=== PATIENT | female | born 1980 | race Caucasian/White ===

== ENCOUNTER 2022-11-02 17:53 | Emergency (ER) | payer BC, OTHER ==
[2022-11-02] MEDS ORDERED: Compazine 10 MG/2 ML IV ONE (18:39)
[2022-11-02] MEDS ORDERED: TORAdol 30 mg Injection IV ONE (18:40)
[2022-11-02] MEDS ORDERED: Sodium Chloride 0.9% 1000 ML 1,000 ML IV STA (18:40)
[2022-11-02] MEDS ORDERED: BENADRYL 50 MG/ML IV ONE (18:42)
[2022-11-02] MEDS ORDERED: TORAdol 30 mg Injection ONE (18:45)
[2022-11-02] MEDS ORDERED: Compazine 10 MG/2 ML ONE (18:46)
[2022-11-02] MEDS ORDERED: BENADRYL 50 MG/ML ONE (18:46)
[2022-11-02] MEDS ORDERED: Sodium Chloride 0.9% 1000 ML 1,000 ML ONE (18:46)
[2022-11-02 19:03] LABS: Absolute Neutrophil Ct (ANC) 6.54 x10^3/uL (1.4-6.9); BASOPHIL % 0.3 % (0.0-0.4); Basophil (Absolute #) 0.03 x10^3/uL (0-0.4); Eosinophil % 2.2 % (0.00-5.0); Eosinophil (Absolute #) 0.21 x10^3/uL (0-0.5); Hemoglobin 12.8 g/dL (12.0-16.0); IMMATURE GRAN # 0.02 x10^3u/L (0.00-0.03); IMMATURE GRAN % 0.2 % (0.00-0.4); Lymphocyte (Absolute #) 1.88 x10^3/uL (1.0-4.6); Lymphocytes % 20.1 % (24.0-44.0); Mean Cell Volume 97.9 fL (78-100); Mean Corpuscular Hemoglobin 30.5 pg (26-32); Mean Corpuscular Hgb Concent. 31.2 g/dL (32-36); Monocyte (Absolute #) 0.66 x10^3/uL (0.0-1.3); Monocytes % 7.1 % (0.0-12.0); Neutrophil % 70.1 % (36.0-66.0); Platelet Count 204 x10^3/uL (150-450); Red Blood Count 4.19 x10^6/uL (4.1-5.4); Red Cell Distribution Width 12.9 % (11.5-14.0); White Blood Count 9.3 x10^3/uL (4.0-10.5)
[2022-11-02 19:10] LABS: Appearance Clear (Clear); Bacteria Rare /HPF (None Seen); Bilirubin Negative (Negative); Epithelial Cells Moderate /HPF (None Seen); Glucose, Urine Negative (Negative); Hyaline Casts NONE SEEN /LPF (0-2); Ketones Trace (Negative); Leukocyte Esterase Trace (Negative); Nitrite Negative (Negative); Ph 5.5 (4.6-8.0); Protein,Urine Dip Negative (Negative); RBC 0-2 /HPF (0-5)
[2022-11-02 19:23] LABS: Blood NHT (Negative)
[2022-11-02 19:24] LABS: ADD URINE CULTURE? NO (NO)
[2022-11-02 19:29] LABS: ALBUMIN 4.1 g/dL (3.5-5.0); ALKALINE PHOSPHATASE 55 U/L (38-126); ANION GAP 11.1 MEQ/L (5-15); BLOOD UREA NITROGEN 16 mg/dL (7-17); CHLORIDE 100 mmol/L (98-107); Calcium 8.5 mg/dL (8.4-10.2); Carbon Dioxide 31 mmol/L (22-30); Creatinine 1 0.58 mg/dL (0.52-1.04); EST GLOMERULAR FILTRATION RATE > 60.0 ML/MIN; Glucose 106 mg/dL (74-106); NT PRO BNP 41.2 pg/mL (0-450); Potassium 3.4 mmol/L (3.5-5.1); SGOT/AST 23 U/L (14-36); SGPT/ALT 22 U/L (0-35); SODIUM 139 mmol/L (137-145); Total Protein 7.1 g/dL (6.3-8.2)
[2022-11-02 20:18] VITALS: O2SAT 100
[2022-11-02] MEDS ORDERED: ROCEPHIN 2 Gm-D5w 50ML BAG** 2 G/50 ML IVPB IV STA (20:58)
--- NOTE | 2022-11-02 20:58 | ERPHSYRPT ---
- History of Present Illness Time Seen by Provider: 11/02/22 23:17 Source: patient Exam Limitations: no limitations Patient Subjective Stated Complaint: pt here for headaches,dizziness since having covid a month ago Triage Nursing Assessment: pt alert, walked in steady gait , resp easy, skin w/d/p. able to undress, no edema noted Physician History: Patient is a 42-year-old female presents the emergency department for evaluation of headache dizziness and shortness of breath. Patient states symptoms started approximately 1 month ago after being diagnosed with COVID. Symptoms are progressive. No trauma. No fever. No nausea vomiting or diaphoresis. Patient denies a history of the same. Patient voices no other complaints or concerns at this time. Portions of this note were created with voice recognition technology. There may be grammatical, spelling, punctuation or sound alike errors Timing/Duration: other (1 month) Severity: moderate Modifying Factors: Improves With: nothing Associated Symptoms: No nausea, No vomiting, No headaches, No loss of appetite Allergies/Adverse Reactions: No Known Drug Allergies Allergy (Verified 11/02/22 18:19) Home Medications: Loratadine 10 mg [Claritin 10 mg] 1 ea DAILY 06/19/12 [History] Medroxyprogesterone Acetate [Depo-Provera] 1 ea UD 06/19/12 [History] Meloxicam [Mobic] 15 mg PO DAILY 11/02/22 [History] Hx Tetanus, Diphtheria Vaccination/Date Given: Yes Hx Influenza Vaccination/Date Given: No Hx Pneumococcal Vaccination/Date Given: No Immunizations Up to Date: Yes Travel Risk - International Travel Have you traveled outside of the country in past 3 weeks: No - Coronavirus Screening Are you exhibiting any of the following symptoms?: No Close contact with a COVID-19 positive Pt in past 14-21 Days: No - Vaccine Status Have you recieved a Covid-19 vaccination: Yes Lathe Operator: Moderna - Vaccination Dates Date of 2cond Vaccination (if applicable): 2020 - Review of Systems Constitutional: No Symptoms, No Fever, No Chills Eyes: No Symptoms Ears, Nose, & Throat: No Symptoms Respiratory: No Symptoms, No Cough, No Dyspnea Cardiac: No Symptoms, No Chest Pain, No Edema, No Syncope Abdominal/Gastrointestinal: No Symptoms, No Abdominal Pain, No Nausea, No Vomiting, No Diarrhea Genitourinary Symptoms: No Symptoms, No Dysuria Musculoskeletal: No Symptoms, No Back Pain, No Neck Pain Skin: No Symptoms, No Rash Neurological: No Symptoms, No Dizziness, No Focal Weakness, No Sensory Changes Psychological: No Symptoms Endocrine: No Symptoms Hematologic/Lymphatic: No Symptoms Immunological/Allergic: No Symptoms All Other Systems: Reviewed and Negative - Past Medical History Pertinent Past Medical History: No Neurological History: No Pertinent History ENT History: No Pertinent History Cardiac History: No Pertinent History Respiratory History: No Pertinent History Endocrine Medical History: Hypoglycemia Musculoskeletal History: No Pertinent History GI Medical History: No Pertinent History History: No Pertinent History Psycho-Social History: Anxiety Female Reproductive Disorders: No Pertinent History - Past Surgical History Past Surgical History: No Neuro Surgical History: No Pertinent History Cardiac: No Pertinent History Respiratory: No Pertinent History Gastrointestinal: No Pertinent History Genitourinary: No Pertinent History Musculoskeletal: No Pertinent History Female Surgical History: Section, Other Other Surgical History: Lasix - gaudencio eyes, surgery to remove plantars warts on feed, skin tag removed. breast lift - Social History Smoking Status: Former smoker How long have you smoked: 15 Exposure to second hand smoke: No Drug Use: none Patient Lives Alone: No - Female History Hx Last Menstrual Period: week ago Hx Now: No - Nursing Vital Signs Nursing Vital Signs: Initial Vital Signs Pulse Rate 68 11/02/22 17:58 Respiratory Rate 18 11/02/22 17:58 Blood Pressure 114/75 11/02/22 17:58 O2 Sat by Pulse Oximetry 98 11/02/22 17:58 Pain Scale Pain Intensity 0 - Physical Exam General Appearance: no apparent distress, alert Eye Exam: PERRL/EOMI, eyes nml inspection Ears, Nose, Throat Exam: normal ENT inspection, TMs normal, pharynx normal, moist mucous membranes Neck Exam: normal inspection, non-tender, supple, full range of motion Respiratory Exam: normal breath sounds, lungs clear, No respiratory distress Cardiovascular Exam: regular rate/rhythm, normal heart sounds, normal peripheral pulses Gastrointestinal/Abdomen Exam: soft, normal bowel sounds, No tenderness, No mass Back Exam: normal inspection, normal range of motion, No CVA tenderness, No vertebral tenderness Extremity Exam: normal inspection, normal range of motion, pelvis stable Neurologic Exam: alert, oriented x 3, cooperative, normal mood/affect, nml cerebellar function, nml station & gait, sensation nml, No motor deficits Skin Exam: normal color, warm, dry, No rash Lymphatic Exam: No adenopathy SpO2 Interpretation: normal SpO2: 100 O2 Delivery: Room Air - Course Nursing assessment & vital signs reviewed: Yes - CT Exams Chest CT Interpretation: Tele-radiologist Report (No pulmonary embolus) Head CT Interpretation: Tele-radiologist Report (No acute large vessel infarction intracranial bleed or mass. Examination limited secondary to suboptimal arterial contrast with findings suggestive of no anterior or posterior cerebral circulation stenosis occlusion or aneurysmal deformity) Ordered Tests: Active Orders 24 hr Category Date Time Status Government Auditor STAT Care 11/02/22 18:41 Active EKG-ER Only STAT Care 11/02/22 18:40 Active IV Insertion STAT Care 11/02/22 18:40 Active Pulse Oximetry (ED) STAT Care 11/02/22 18:40 Active CHEST WITH CONTRAST [CT] Stat Exams 11/02/22 20:56 Taken CTA HEAD W AND/OR WO CONTRAST [CT] Stat Exams 11/02/22 20:55 Taken CBC W DIFF Stat Lab 11/02/22 18:59 Completed CMP Stat Lab 11/02/22 18:59 Completed D-DIMER QUANTITATIVE Stat Lab 11/02/22 18:59 Completed NT PRO BNP Stat Lab 11/02/22 18:59 Completed TSH [TSH, 3RD Generation] Stat Lab 11/02/22 18:59 Completed UA W/RFX UR CULTURE Stat Lab 11/02/22 18:44 Completed Medication Summary Discontinued Medications Generic Name Dose Route Start Last Admin Trade Name Allenq PRN Reason Stop Dose Admin Diphenhydramine HCl 25 mg 11/02/22 18:42 11/02/22 18:50 Diphenhydramine Hcl 50 Mg/Ml Vial IV 11/02/22 18:43 25 mg STAT ONE Administration Diphenhydramine HCl Confirm 11/02/22 18:46 Diphenhydramine Hcl 50 Mg/Ml Vial Administered 11/02/22 18:47 Dose 50 mg .ROUTE .STK-MED ONE Sodium Chloride 1,000 mls @ 999 mls/hr 11/02/22 18:40 11/02/22 19:50 Sodium Chloride 0.9% 1000 Ml IV 11/02/22 19:40 Infused .Q1H1M STA Infusion Sodium Chloride Confirm 11/02/22 18:46 Sodium Chloride 0.9% 1000 Ml Administered 11/02/22 18:47 Dose 1,000 mls @ ud .ROUTE .STK-MED ONE Ceftriaxone Sodium/Dextrose 2 g in 50 mls @ 100 mls/hr 11/02/22 20:58 11/02/22 22:33 Rocephin 2 Gm-D5w 50ml Bag IV 11/02/22 21:27 100 mls/hr STAT STA 100 mls/hr Administration Ceftriaxone Sodium/Dextrose Confirm 11/02/22 22:28 Rocephin 2 Gm-D5w 50ml Bag Administered 11/02/22 22:29 Dose 2 g in 50 mls @ ud IV .STK-MED ONE Ketorolac Tromethamine 30 mg 11/02/22 18:40 11/02/22 18:50 Ketorolac Tromethamine 30 Mg/Ml Inj IV 11/02/22 18:41 30 mg STAT ONE Administration Ketorolac Tromethamine Confirm 11/02/22 18:45 Ketorolac Tromethamine 30 Mg/Ml Inj Administered 11/02/22 18:46 Dose 30 mg .ROUTE .STK-MED ONE Prochlorperazine Edisylate 10 mg 11/02/22 18:39 11/02/22 18:50 Prochlorperazine Edisylate 10 Mg/2 Ml Vial IV 11/02/22 18:40 10 mg STAT ONE Administration Prochlorperazine Edisylate Confirm 11/02/22 18:46 Prochlorperazine Edisylate 10 Mg/2 Ml Vial Administered 11/02/22 18:47 Dose 10 mg .ROUTE .STK-MED ONE Lab/Rad Data: Laboratory Result Diagrams 11/02/22 18:59 11/02/22 18:59 Laboratory Results 11/02/22 11/02/22 11/02/22 Range/Units 18:59 18:59 18:59 WBC 9.3 (4.0-10.5) x10^3/uL RBC 4.19 (4.1-5.4) x10^6/uL Hgb 12.8 (12.0-16.0) g/dL Hct 41.0 (35-47) % MCV 97.9 (78-100) fL MCH 30.5 (26-32) pg MCHC 31.2 L (32-36) g/dL RDW 12.9 (11.5-14.0) % Plt Count 204 (150-450) x10^3/uL MPV 11.0 (7.5-11.0) fL Gran % 70.1 H (36.0-66.0) % Immature Gran % (Auto) 0.2 (0.00-0.4) % Nucleat RBC Rel Count 0.0 (0.00-0.1) % Eos # (Auto) 0.21 (0-0.5) x10^3/uL Immature Gran # (Auto) 0.02 (0.00-0.03) x10^3u/L Absolute Lymphs (auto) 1.88 (1.0-4.6) x10^3/uL Absolute Monos (auto) 0.66 (0.0-1.3) x10^3/uL Absolute Nucleated RBC 0.00 (0.00-0.01) x10^3u/L Lymphocytes % 20.1 L (24.0-44.0) % Monocytes % 7.1 (0.0-12.0) % Eosinophils % 2.2 (0.00-5.0) % Basophils % 0.3 (0.0-0.4) % Absolute Granulocytes 6.54 (1.4-6.9) x10^3/uL Basophils # 0.03 (0-0.4) x10^3/uL D-Dimer 0.52 H (0.0-0.50) mg/L Sodium 139 (137-145) mmol/L Potassium 3.4 L (3.5-5.1) mmol/L Chloride 100 (98-107) mmol/L Carbon Dioxide 31 H (22-30) mmol/L Anion Gap 11.1 (5-15) MEQ/L BUN 16 (7-17) mg/dL Creatinine 0.58 (0.52-1.04) mg/dL Estimated GFR > 60.0 ML/MIN Glucose 106 (74-106) mg/dL Calcium 8.5 (8.4-10.2) mg/dL Total Bilirubin 0.40 (0.2-1.3) mg/dL AST 23 (14-36) U/L ALT 22 (0-35) U/L Alkaline Phosphatase 55 (38-126) U/L NT-Pro-B Natriuret Pep 41.2 (0-450) pg/mL Serum Total Protein 7.1 (6.3-8.2) g/dL Albumin 4.1 (3.5-5.0) g/dL TSH 3rd Generation (0.47-4.68) mIU/L Urine Color (Yellow) Urine Appearance (Clear) Urine pH (4.6-8.0) Ur Specific Haynes (1.005-1.030) Urine Protein (Negative) Urine Glucose (UA) (Negative) mg/dL Urine Ketones (Negative) Urine Blood (Negative) Urine Nitrite (Negative) Urine Bilirubin (Negative) Urine Urobilinogen (0.2) mg/dL Ur Leukocyte Esterase (Negative) U Hyaline Cast (Auto) (0-2) /LPF Urine Microscopic RBC (0-5) /HPF Urine Microscopic WBC (0-5) /HPF Ur Epithelial Cells (None Seen) /HPF Urine Bacteria (None Seen) /HPF Urine Culture Reflexed (NO) 11/02/22 11/02/22 Range/Units 18:59 18:44 WBC (4.0-10.5) x10^3/uL RBC (4.1-5.4) x10^6/uL Hgb (12.0-16.0) g/dL Hct (35-47) % MCV (78-100) fL MCH (26-32) pg MCHC (32-36) g/dL RDW (11.5-14.0) % Plt Count (150-450) x10^3/uL MPV (7.5-11.0) fL Gran % (36.0-66.0) % Immature Gran % (Auto) (0.00-0.4) % Nucleat RBC Rel Count (0.00-0.1) % Eos # (Auto) (0-0.5) x10^3/uL Immature Gran # (Auto) (0.00-0.03) x10^3u/L Absolute Lymphs (auto) (1.0-4.6) x10^3/uL Absolute Monos (auto) (0.0-1.3) x10^3/uL Absolute Nucleated RBC (0.00-0.01) x10^3u/L Lymphocytes % (24.0-44.0) % Monocytes % (0.0-12.0) % Eosinophils % (0.00-5.0) % Basophils % (0.0-0.4) % Absolute Granulocytes (1.4-6.9) x10^3/uL Basophils # (0-0.4) x10^3/uL D-Dimer (0.0-0.50) mg/L Sodium (137-145) mmol/L Potassium (3.5-5.1) mmol/L Chloride (98-107) mmol/L Carbon Dioxide (22-30) mmol/L Anion Gap (5-15) MEQ/L BUN (7-17) mg/dL Creatinine (0.52-1.04) mg/dL Estimated GFR ML/MIN Glucose (74-106) mg/dL Calcium (8.4-10.2) mg/dL Total Bilirubin (0.2-1.3) mg/dL AST (14-36) U/L ALT (0-35) U/L Alkaline Phosphatase (38-126) U/L NT-Pro-B Natriuret Pep (0-450) pg/mL Serum Total Protein (6.3-8.2) g/dL Albumin (3.5-5.0) g/dL TSH 3rd Generation 2.180 (0.47-4.68) mIU/L Urine Color Yellow (Yellow) Urine Appearance Clear (Clear) Urine pH 5.5 (4.6-8.0) Ur Specific Haynes 1.020 (1.005-1.030) Urine Protein Negative (Negative) Urine Glucose (UA) Negative (Negative) mg/dL Urine Ketones Trace A (Negative) Urine Blood NHT (Negative) Urine Nitrite Negative (Negative) Urine Bilirubin Negative (Negative) Urine Urobilinogen 1.0 A (0.2) mg/dL Ur Leukocyte Esterase Trace A (Negative) U Hyaline Cast (Auto) NONE SEEN (0-2) /LPF Urine Microscopic RBC 0-2 (0-5) /HPF Urine Microscopic WBC 6-10 A (0-5) /HPF Ur Epithelial Cells Moderate A (None Seen) /HPF Urine Bacteria Rare A (None Seen) /HPF Urine Culture Reflexed NO (NO) - Progress Progress: improved Progress Note: Patient is a 42-year-old female presents to emergency department for evaluation of headache dizziness and shortness of breath. Symptoms ongoing for approximately 1 month. Physical exam presenting unremarkable. Patient's complaint is chronic. C omplexity of patient's complaint is moderate. No significant comorbidities to contribute the patient symptomology other than patient had COVID approximately 1 month ago. Tests ordered include EKG which was reviewed by Dr. Fierro. Test include CT chest, CTA head, CBC, CMP which revealed a potassium of 3.4. D-dimer which is elevated at 0.52. BNP TSH and UA. Urinalysis reveals a urinary tract inf ection. Patient received Benadryl Compazine Toradol and IV fluids for her headache. Rocephin IV was administered for urinary tract infection. Patient reassessed. She feels much better. Vital stable. Patient agrees to follow-up with her primary care doctor within 48 hours for reevaluation. Level of EM service provided was moderate. Complexity of problem addressed was moderate. Complexity of data reviewed and analyzed was moderate. Patient served as independent historian. Time spent during discharge approximately 10 minutes. Discharge diagnoses of dizziness, headache and urinary tract infection. Portions of this note were created with voice recognition technology. There may be grammatical, spelling, punctuation or sound alike errors 11/03/22 00:17 Counseled pt/family regarding: lab results, diagnosis, need for follow-up, rad results - Departure Departure Disposition: Home Clinical Impression: UTI (urinary tract infection), Dizziness, Headache Condition: Stable Critical Care Time: No Referrals: BEAU NUNN NP [Primary Care Provider] - Follow up/PCP as directed
[2022-11-02 21:12] VITALS: BP 114/65
[2022-11-02] MEDS ORDERED: ROCEPHIN 2 Gm-D5w 50ML BAG** 2 G/50 ML IVPB IV ONE (22:28)
[2022-11-03] MEDS ORDERED: Klor Con PO ONE ×2 (00:15→00:18)
[2022-11-03 00:21] VITALS: PULSE 84
--- NOTE | 2022-11-03 08:54 | XRAY ---
Indication: Dizziness and frontal headache. Cavernous sinus thrombosis. Conventional contrast enhanced CTV head performed with and without contrast using 80 cc Isovue 370 contrast. 2-D sagittal and coronal reformatted images obtained. Additional 3-D reformatted images obtained using a separate workstation. Comparison: None Noncontrast images demonstrate normal brain parenchyma, ventricles, and bony calvarium. Visualized paranasal sinuses and mastoid air cells are clear. Postcontrast images are negative for abnormal enhancing intra or extra-axial mass. Visualized venous sinuses/drainage and jugular veins are negative for thrombosis. Impression: Normal CTV head with and without contrast exam. Comment: Preliminary interpretation made by [facility]. No critical discrepancy.
--- NOTE | 2022-11-03 08:58 | XRAY ---
Indication: Dizziness and frontal headache. Elevated d-dimer. History Covid 19. Status post bilateral breast implants 6 days ago. Multiple contiguous axial images obtained through the chest using 70 cc Isovue 370 contrast and PE protocol. Comparison: None Good opacification of the pulmonary arteries to include the lobar and segmental branches. No pulmonary embolus. Heart is not enlarged. Aorta is normal in course and caliber. 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 No pathologic mediastinal/hilar lymphadenopathy. Lungs are inflated and clear. Bony thorax intact. Intact bilateral subglandular breast implants with moderate free air consistent with recent surgery. Limited upper abdomen unremarkable. Impression: 1. Normal CT PE exam. 2. Status post bilateral breast implants. Comment: Preliminary interpretation made by C. No critical discrepancy.
== END 2022-11-03 00:40 | disposition home or self-care (01) ==
LOC: ED 17:53
DX: N39.0 Urinary tract infection, site not specified (principal); R42 Dizziness and giddiness; R51.9 Headache, unspecified; R06.02 Shortness of breath; Z79.899 Other long term (current) drug therapy
CPT/HCPCS: 36000; 36415; 70496; 71260; 80053; 81001; 83880; 84443; 85025; 85379; 93005; 93041; 94760; 96374; 96375; 99284; J0696; J1200; J1885; A9270-GY

== ENCOUNTER 2024-08-12 02:37 | Emergency (ER) | payer BC ==
[2024-08-12 02:43] VITALS: RESP 16; TEMP 97.2
[2024-08-12 03:06] VITALS: BP 105/75; PULSE 86; O2SAT 100
--- NOTE | 2024-08-12 03:18 | ERPHSYRPT ---
- History of Present Illness Time Seen by Provider: 08/12/24 03:11 Source: patient Exam Limitations: no limitations Patient Subjective Stated Complaint: dizziness Triage Nursing Assessment: Pt ambulated into ER, spouse at bedside. Pt alert and oriented x4. Pt c/o vertigo which woke her up from sleep tonight. Pt states, "I feel like the room is just spinning". Pt was admitted 3 weeks ago at [facility] for dizziness. Pt c/o pressure in her ears. Physician History: Patient's had chronic vertigo since she had long COVID. Has been going on for months to years. She had an acute exacerbation tonight. It is positional. She has whirling feeling whenever she moves in certain positions. She is nauseated. She has been evaluated for this by neurology. She has been admitted for this. She has had multiple workups. They think it is possibly related to the COVID. Movement makes his symptoms worse nothing makes it better. She has no ataxia. Allergies/Adverse Reactions: No Known Drug Allergies Allergy (Verified 08/12/24 02:50) Home Medications: Loratadine 10 mg [Claritin 10 mg] 1 ea PO DAILY 06/19/12 [History] Meloxicam [Mobic] 15 mg PO DAILY 11/02/22 [History] Erenumab-Aooe [Aimovig Autoinjector] 140 mg SQ UD 08/12/24 [History] Hydroxyzine HCl 25 mg [Atarax 25 mg] 1 tab PO QID PRN PRN 08/12/24 [History] Meclizine HCl 25 mg [Antivert 25 mg] 1 tab PO QID PRN PRN 08/12/24 [History] Hx Tetanus, Diphtheria Vaccination/Date Given: Yes Hx Influenza Vaccination/Date Given: No Hx Pneumococcal Vaccination/Date Given: No Travel Risk - International Travel Have you traveled outside of the country in past 3 weeks: No - Emerging Infectious Disease Are you exhibiting symptoms associated with any current EIDs: No - Review of Systems Constitutional: No Symptoms Eyes: No Symptoms Ears, Nose, & Throat: No Symptoms All Other Systems: Reviewed and Negative - Past Medical History Pertinent Past Medical History: Yes Neurological History: Migraines ENT History: No Pertinent History Cardiac History: No Pertinent History Respiratory History: No Pertinent History Endocrine Medical History: Hypoglycemia Musculoskeletal History: No Pertinent History GI Medical History: No Pertinent History History: No Pertinent History Psycho-Social History: Anxiety Female Reproductive Disorders: No Pertinent History Other Medical History: vertigo, vestibular migraines, Long Covid - Past Surgical History Past Surgical History: Yes Neuro Surgical History: No Pertinent History Cardiac: No Pertinent History Respiratory: No Pertinent History Gastrointestinal: No Pertinent History Genitourinary: No Pertinent History Musculoskeletal: No Pertinent History Female Surgical History: Section, Other Other Surgical History: Lasix - gaudencio eyes, surgery to remove plantars warts on feet, skin tag removed. breast lift - Female History Hx Last Menstrual Period: 2 weeks ago Hx Now: No - Social History Smoking Status: Former smoker How long have you smoked: 15 Exposure to second hand smoke: No Drug Use: none Patient Lives Alone: No - Social Determinants of Health Will the patient participate in the screening: Yes Do you worry about a steady place to live?: No Do you have any problems with any of the following?: No known problems In the past 12 months,have you had to go without utilities?: No Transportation Issues: No Has anyone in your support network made you feel unsafe?: No Have you or anyone in your house had to go without enough: No - Nursing Vital Signs Nursing Vital Signs: Initial Vital Signs Temperature 97.2 F 08/12/24 02:41 Pulse Rate 83 08/12/24 02:41 Respiratory Rate 16 08/12/24 02:41 Blood Pressure 112/84 08/12/24 02:41 O2 Sat by Pulse Oximetry 94 L 08/12/24 02:41 Pain Scale Pain Intensity 0 - Physical Exam General Appearance: no apparent distress Eye Exam: PERRL/EOMI, eyes nml inspection Ears, Nose, Throat Exam: normal ENT inspection, TMs normal, pharynx normal Neurologic Exam: alert, oriented x 3, cooperative, room designer II-XII nml as tested, normal mood/affect, nml cerebellar function, other (Patient does not have any ataxia. The hints test is not required because it is positional) Skin Exam: normal color SpO2: 100 - Course Nursing assessment & vital signs reviewed: Yes - Progress Progress: improved Progress Note: Patient was stable throughout stay. She is already on Antivert 3 times a day. She says AtiRates has worked for her in the past. She is wanting some acute relief now. I think would give her some Ativan. It is positional. It does not appear to be any kind of central vertigo. She is already been worked up for this thoroughly. I do not think any more further workup is needed at this time. I will send her home with a prescription for some Ativan as well. 08/12/24 03:17 Medical Desision Making - Independent Historian Additional History obtained from: Spouse - Diagnostic Testing Diagnostic test were ordered, analyzed, and reviewed by me: No - Risk of complications Minimal Risk: Minimal risk of morbidity - Departure Departure Disposition: Home Clinical Impression: Chronic vertigo Condition: Stable Critical Care Time: No Referrals: BAEU NUNN NP [Primary Care Provider] - Follow up/PCP as directed Instructions: Vertigo (a Type of Dizziness) (DC) Prescriptions: Lorazepam [Ativan] 1 mg PO BID PRN #20 tablet
[2024-08-12] MEDS ORDERED: Ativan 1 MG ONE (03:23)
[2024-08-12] MEDS: Ativan 1 MG PO ONE (03:24)
== END 2024-08-12 03:44 | disposition home or self-care (01) ==
LOC: ED 02:37
DX: R42 Dizziness and giddiness (principal); Z86.16 Personal history of COVID-19
CPT/HCPCS: 99282; A9270-GY

== ENCOUNTER 2024-08-26 13:20 | Observation (INO) | payer BC ==
[2024-08-26 13:54] LABS: Absolute Neutrophil Ct (ANC) 6.99 x10^3/uL (1.56-6.13); BASOPHIL % 0.3 % (0.1-1.2); Basophil (Absolute #) 0.03 x10^3/uL (0.01-0.08); Eosinophil % 1.7 % (0.7-5.8); Eosinophil (Absolute #) 0.16 x10^3/uL (0.04-0.36); Hematocrit 42.3 % (34.1-44.9); IMMATURE GRAN # 0.03 x10^3u/L (0.001-0.031); IMMATURE GRAN % 0.3 % (0.001-0.429); Lymphocyte (Absolute #) 1.83 x10^3/uL (1.18-3.74); Lymphocytes % 19.5 % (19.3-51.7); Mean Cell Volume 96.1 fL (79.4-94.8); Mean Corpuscular Hemoglobin 31.8 pg (25.6-32.2); Mean Corpuscular Hgb Concent. 33.1 g/dL (32.2-35.5); Mean Platelet Volume 11.2 fL (9.4-12.3); Monocyte (Absolute #) 0.33 x10^3/uL (0.24-0.86); Monocytes % 3.5 % (4.7-12.5); Neutrophil % 74.7 % (34.0-71.1); Platelet Count 191 x10^3/uL (182-369); Red Cell Distribution Width 11.8 % (11.7-14.4); White Blood Count 9.4 x10^3/uL (3.98-10.04)
[2024-08-26 14:05] LABS: HCG SERUM TEST NEGATIVE (NEGATIVE)
[2024-08-26 14:09] LABS: ALBUMIN 4.2 g/dL (3.5-5.0); ALKALINE PHOSPHATASE 47 U/L (38-126); BLOOD UREA NITROGEN 11 mg/dL (7-17); CHLORIDE 107 mmol/L (98-107); Carbon Dioxide 26 mmol/L (22-30); Creatinine 1 0.59 mg/dL (0.52-1.04); EST GLOMERULAR FILTRATION RATE 113.9 ML/MIN; ETHYL ALCOHOL < 10 mg/dL (0-10); Glucose 126 mg/dL (74-106); MAGNESIUM 2.2 mg/dL (1.6-2.3); Potassium 3.8 mmol/L (3.5-5.1); SGOT/AST 25 U/L (14-36); SGPT/ALT 19 U/L (0-35); SODIUM 140 mmol/L (135-145); Total Protein 7.2 g/dL (6.3-8.2)
--- NOTE | 2024-08-26 14:56 | XRAY ---
CLINICAL HISTORY: dizziness, light headed COMPARISON: None. TECHNIQUE: Axial non-contrast CT scan of the brain was performed from the skull base to the high parietal region. One of the following dose reduction techniques were utilized for this exam: Automated exposure control, adjustment of the mA and/or kV according to patient size, use of iterative reconstruction. FINDINGS: Brain Parenchyma: Normal attenuation of the cerebral hemispheres, cerebellum, and brainstem. No evidence of acute infarct, hemorrhage, or mass effect. Hypoattenuating focus within the inferior portion of the right lentiform nucleus is most consistent with a prominent perivascular space, less likely to be a lacunar infarct. Ventricular System: Ventricles are normal in size and configuration. No evidence of hydrocephalus or ventricular enlargement. Subarachnoid Spaces: Normal sulci and cisterns. No evidence of subarachnoid hemorrhage or extra-axial fluid collections. Cerebellum and Brainstem: Normal size and signal. No masses, lesions, or areas of abnormal signal. Orbits: Normal appearance of the globes, optic nerves, and extraocular muscles. No evidence of orbital masses or abnormal signals. Sinuses: Clear paranasal sinuses. No evidence of sinusitis or mucosal thickening. A small mucous retention cyst is seen in the left maxillary sinus. Mastoid Air Cells: Clear mastoid air cells. No evidence of mastoiditis. Skull and Meninges: Normal skull morphology. IMPRESSION: 1. Normal CT of the head without contrast. 2. No acute intracranial abnormality is seen. Electronically Signed by: Osmar Dobson MD. (08/26/2024 14:52:48 EST)
[2024-08-26] MEDS ORDERED: Sodium Chloride 0.9% 1000 ML 1,000 ML ONE ×2 (16:12→17:04)
[2024-08-26] MEDS: Sodium Chloride 0.9% 1000 ML 1,000 ML IV STA ×2 (16:13→17:05)
--- NOTE | 2024-08-26 16:50 | ERPHSYRPT ---
- History of Present Illness Time Seen by Provider: 08/26/24 14:30 Source: patient Exam Limitations: no limitations Patient Subjective Stated Complaint: C/O hypotension. Patient states she has been having intermittent hypotension for the past month but she feels "more off" this am. Triage Nursing Assessment: Patient ambulated back to ER. She is alert and oriented. No SOB. Patient is calm. FREDERICK WNL. Timing/Duration: today Severity: mild Modifying Factors: Improves With: movement Associated Symptoms: loss of appetite, weakness (near syncope) Allergies/Adverse Reactions: No Known Drug Allergies Allergy (Verified 08/26/24 13:29) Home Medications: Loratadine 10 mg [Claritin 10 mg] 1 ea PO DAILY PRN 06/19/12 [History] Meloxicam [Mobic] 15 mg PO DAILY 11/02/22 [History] Erenumab-Aooe [Aimovig Autoinjector] 140 mg SQ UD 08/12/24 [History] Hydroxyzine HCl 25 mg [Atarax 25 mg] 1 tab PO QID PRN PRN 08/12/24 [History] Meclizine HCl 25 mg [Antivert 25 mg] 1 tab PO QID PRN PRN 08/12/24 [History] Promethazine HCl 25 mg [Phenergan 25 mg] 25 mg PO QID PRN 08/26/24 [Hist ory] Hx Tetanus, Diphtheria Vaccination/Date Given: Yes Hx Influenza Vaccination/Date Given: No Hx Pneumococcal Vaccination/Date Given: No Immunizations Up to Date: Yes Travel Risk - International Travel Have you traveled outside of the country in past 3 weeks: No - Emerging Infectious Disease Are you exhibiting symptoms associated with any current EIDs: No - Review of Systems Constitutional: Fatigue, Malaise, Weakness Eyes: No Symptoms Ears, Nose, & Throat: No Symptoms Respiratory: No Symptoms Cardiac: No Symptoms Abdominal/Gastrointestinal: No Symptoms Genitourinary Symptoms: No Symptoms Musculoskeletal: No Symptoms Skin: No Symptoms Neurological: No Symptoms Psychological: No Symptoms Endocrine: No Symptoms Hematologic/Lymphatic: No Symptoms Immunological/Allergic: No Symptoms All Other Systems: Reviewed and Negative - Past Medical History Pertinent Past Medical History: Yes Neurological History: Migraines ENT History: No Pertinent History Cardiac History: No Pertinent History Respiratory History: No Pertinent History Endocrine Medical History: Hypoglycemia Musculoskeletal History: No Pertinent History GI Medical History: No Pertinent History History: No Pertinent History Psycho-Social History: Anxiety Female Reproductive Disorders: No Pertinent History Other Medical History: vertigo, vestibular migraines, Long Covid - Past Surgical History Past Surgical History: Yes Neuro Surgical History: No Pertinent History Cardiac: No Pertinent History Respiratory: No Pertinent History Gastrointestinal: No Pertinent History Genitourinary: No Pertinent History Musculoskeletal: No Pertinent History Female Surgical History: Section, Other Other Surgical History: Lasik - gaudencio eyes, surgery to remove plantars warts on feet, skin tag removed. breast lift - Female History Hx Last Menstrual Period: 3 weeks ago Hx Now: No - Social History Smoking Status: Former smoker How long have you smoked: 15 Exposure to second hand smoke: No Drug Use: none Patient Lives Alone: No - Social Determinants of Health Will the patient participate in the screening: Declined to provide - Nursing Vital Signs Nursing Vital Signs: Initial Vital Signs Blood Pressure 115/78 08/26/24 13:30 O2 Sat by Pulse Oximetry 100 08/26/24 13:30 Pain Scale Pain Intensity 0 - Physical Exam General Appearance: no apparent distress Eye Exam: PERRL/EOMI Ears, Nose, Throat Exam: other (oral mucosa are dry ) Respiratory Exam: normal breath sounds Cardiovascular Exam: regular rate/rhythm Gastrointestinal/Abdomen Exam: soft, normal bowel sounds Back Exam: normal inspection Neurologic Exam: alert, oriented x 3 SpO2: 100 Ordered Tests: Active Orders 24 hr Category Date Time Status Benefits Coordinator STAT Care 08/26/24 13:44 Active EKG-ER Only STAT Care 08/26/24 13:43 Active IV Insertion STAT Care 08/26/24 13:43 Active Orthostatic Vital Signs STAT Care 08/26/24 13:43 Active HEAD WITHOUT CONTRAST [CT] Stat Exams 08/26/24 13:43 Completed CBC W DIFF Stat Lab 08/26/24 13:45 Completed CMP Stat Lab 08/26/24 13:45 Completed ETHYL ALCOHOL Stat Lab 08/26/24 13:45 Completed HCG QUALITATIVE, SERUM Stat Lab 08/26/24 13:45 Completed Lactic Acid Stat Lab 08/26/24 13:46 Completed MAGNESIUM Stat Lab 08/26/24 13:45 Completed TROPONIN Q4H Lab 08/26/24 13:45 Completed TROPONIN Q4H Lab 08/26/24 17:45 Ordered TROPONIN Q4H Lab 08/26/24 21:45 Ordered UA W/RFX UR CULTURE Stat Lab 08/26/24 13:43 Ordered Urine Triage Profile Stat Lab 08/26/24 13:43 Ordered Transfer Order Routine Transfer 08/26/24 Ordered Medication Summary Generic Name Dose Route Start Last Admin Trade Name [place] PRN Reason Stop Dose Admin Sodium Chloride 1,000 mls @ 999 mls/hr 08/26/24 16:08 08/26/24 16:13 Sodium Chloride 0.9% 1000 Ml IV 08/26/24 17:08 999 mls/hr .Q1H1M STA Administration Discontinued Medications Generic Name Dose Route Start Last Admin Trade Name Freq PRN Reason Stop Dose Admin Sodium Chloride Confirm 08/26/24 16:12 Sodium Chloride 0.9% 1000 Ml Administered 08/26/24 16:13 Dose 1,000 mls @ ud .ROUTE .STK-MED ONE Lab/Rad Data: Laboratory Result Diagrams 08/26/24 13:45 08/26/24 13:45 Laboratory Results 08/26/24 08/26/24 08/26/24 Range/Units 13:46 13:45 13:45 WBC (3.98-10.04) x10^3/uL RBC (3.93-5.22) x10^6/uL Hgb (11.2-15.7) g/dL Hct (34.1-44.9) % MCV (79.4-94.8) fL MCH (25.6-32.2) pg MCHC (32.2-35.5) g/dL RDW (11.7-14.4) % Plt Count (182-369) x10^3/uL MPV (9.4-12.3) fL Gran % (34.0-71.1) % Immature Gran % (Auto) (0.001-0.429) % Nucleat RBC Rel Count (0.00-0.2) % Eos # (Auto) (0.04-0.36) x10^3/uL Immature Gran # (Auto) (0.001-0.031) x10^3u/L Absolute Lymphs (auto) (1.18-3.74) x10^3/uL Absolute Monos (auto) (0.24-0.86) x10^3/uL Absolute Nucleated RBC (0.00-0.012) x10^3u/L Lymphocytes % (19.3-51.7) % Monocytes % (4.7-12.5) % Eosinophils % (0.7-5.8) % Basophils % (0.1-1.2) % Absolute Granulocytes (1.56-6.13) x10^3/uL Basophils # (0.01-0.08) x10^3/uL Sodium (135-145) mmol/L Potassium (3.5-5.1) mmol/L Chloride (98-107) mmol/L Carbon Dioxide (22-30) mmol/L Anion Gap (5-15) MEQ/L BUN (7-17) mg/dL Creatinine (0.52-1.04) mg/dL Estimated GFR ML/MIN Glucose (74-106) mg/dL Lactic Acid 1.2 (0.4-2.0) Calcium (8.4-10.2) mg/dL Magnesium (1.6-2.3) mg/dL Total Bilirubin (0.2-1.3) mg/dL AST (14-36) U/L ALT (0-35) U/L Alkaline Phosphatase (38-126) U/L Troponin I < 0.012 (0.000-0.033) ng/mL Serum Total Protein (6.3-8.2) g/dL Albumin (3.5-5.0) g/dL Serum HCG, Qual NEGATIVE (NEGATIVE) Ethyl Alcohol (0-10) mg/dL 08/26/24 08/26/24 Range/Units 13:45 13:45 WBC 9.4 (3.98-10.04) x10^3/uL RBC 4.40 (3.93-5.22) x10^6/uL Hgb 14.0 (11.2-15.7) g/dL Hct 42.3 (34.1-44.9) % MCV 96.1 H (79.4-94.8) fL MCH 31.8 (25.6-32.2) pg MCHC 33.1 (32.2-35.5) g/dL RDW 11.8 (11.7-14.4) % Plt Count 191 (182-369) x10^3/uL MPV 11.2 (9.4-12.3) fL Gran % 74.7 H (34.0-71.1) % Immature Gran % (Auto) 0.3 (0.001-0.429) % Nucleat RBC Rel Count 0.0 (0.00-0.2) % Eos # (Auto) 0.16 (0.04-0.36) x10^3/uL Immature Gran # (Auto) 0.03 (0.001-0.031) x10^3u/L Absolute Lymphs (auto) 1.83 (1.18-3.74) x10^3/uL Absolute Monos (auto) 0.33 (0.24-0.86) x10^3/uL Absolute Nucleated RBC 0.00 (0.00-0.012) x10^3u/L Lymphocytes % 19.5 (19.3-51.7) % Monocytes % 3.5 L (4.7-12.5) % Eosinophils % 1.7 (0.7-5.8) % Basophils % 0.3 (0.1-1.2) % Absolute Granulocytes 6.99 H (1.56-6.13) x10^3/uL Basophils # 0.03 (0.01-0.08) x10^3/uL Sodium 140 (135-145) mmol/L Potassium 3.8 (3.5-5.1) mmol/L Chloride 107 (98-107) mmol/L Carbon Dioxide 26 (22-30) mmol/L Anion Gap 11.0 (5-15) MEQ/L BUN 11 (7-17) mg/dL Creatinine 0.59 (0.52-1.04) mg/dL Estimated GFR 113.9 ML/MIN Glucose 126 H (74-106) mg/dL Lactic Acid (0.4-2.0) Calcium 9.0 (8.4-10.2) mg/dL Magnesium 2.2 (1.6-2.3) mg/dL Total Bilirubin 0.50 (0.2-1.3) mg/dL AST 25 (14-36) U/L ALT 19 (0-35) U/L Alkaline Phosphatase 47 (38-126) U/L Troponin I (0.000-0.033) ng/mL Serum Total Protein 7.2 (6.3-8.2) g/dL Albumin 4.2 (3.5-5.0) g/dL Serum HCG, Qual (NEGATIVE) Ethyl Alcohol < 10 (0-10) mg/dL - Progress Progress Note: Patient's labs were reviewed and she was given IV fluids she was informed of the need for rehydration and admission she is agreeable. I spoke to the hospitalist he was updated with the patient's vital signs and lab results he will admit the patient 08/26/24 16:49 Medical Desision Making - Discussion of managment Care discussed with:: hospitalist Reviewed:: Need for additional workup Agreed on:: decision to admit, place in obs Will see patient: in hospital - Departure Departure Disposition: Observation Clinical Impression: Hypotension, Weakness Condition: Stable Critical Care Time: No Referrals: BEAU NUNN NP [Primary Care Provider] - Follow up/PCP as directed
--- NOTE | 2024-08-26 17:40 | PCM.HP ---
History of Present Illness - Chief Complaint Chief Complaint: orthostatic hypotension Date: 08/26/24 History of Present Illness: is a 44 year old female with PMHX of long-COVID, migraines, hypoglycemia, and anxiety. She came to the ER today C/O hypotension. She tried drinking water, water with electrolytes, and water with salt added and was unable to get her BP up. Patient states she has been having intermittent hypotension for the past month but she feels "more off" this am. She reports she has an appointment at the [facility] November 25, 2024 for possible autonomic disorder evaluation. She reports sleeping in the floor at home and taking anivert at night to sleep as this helps. She reports being seen by pain management and was tole she has conversion d/o. 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 CT head in ER did not show any concerning findings. She denies CP, SOB, abd. pain, N/V/D. - Review of Systems Constitutional: No Fever, No Chills Eyes: No Symptoms Ears, Nose, & Throat: No Symptoms Respiratory: No Cough, No Short Of Breath Cardiac: No Chest Pain, No Edema, No Syncope Abdominal/Gastrointestinal: No Abdominal Pain, No Nausea, No Vomiting, No Diarrhea Genitourinary Symptoms: No Dysuria Musculoskeletal: No Back Pain, No Neck Pain Skin: No Rash Neurological: No Dizziness, No Focal Weakness, No Sensory Changes Psychological: No Symptoms Endocrine: No Symptoms Hematologic/Lymphatic: No Symptoms Immunological/Allergic: No Symptoms Medications & Allergies Home Medications: Home Medication List Loratadine 10 mg [Claritin 10 mg] 1 ea PO DAILY PRN 06/19/12 [History Confirmed 08/26/24] Meloxicam [Mobic] 15 mg PO DAILY 11/02/22 [History Confirmed 08/26/24] Hydroxyzine HCl 25 mg [Atarax 25 mg] 1 tab PO QID PRN PRN 08/12/24 [History Confirmed 08/26/24] Lorazepam [Ativan] 1 mg PO BID PRN #20 tablet 08/12/24 [Rx Confirmed 08/26/24] Meclizine HCl 25 mg [Antivert 25 mg] 1 tab PO QID PRN PRN 08/12/24 [History Confirmed 08/26/24] Ergocalciferol (Vitamin D2) [Vitamin D2] 1,250 mcg PO 2XW 08/26/24 [History Confirmed 08/26/24] Promethazine HCl 25 mg [Phenergan 25 mg] 25 mg PO QID PRN 08/26/24 [History Confirmed 08/26/24] Allergies/Adverse Reactions: Allergies Allergy/AdvReac Type Severity Reaction Status Date / Time No Known Drug Allergies Allergy Verified 08/26/24 17:30 - Past Medical History Past Medical History: Yes Neurological History: Migraines ENT History: No Pertinent History Cardiac History: No Pertinent History Respiratory History: No Pertinent History Endocrine Medical History: Hypoglycemia Musculoskelatal History: No Pertinent History GI Medical History: No Pertinent History History: No Pertinent History Pyscho-Social History: Anxiety Reproductive Disorders: No Pertinent History Comment: vertigo, vestibular migraines, Long Covid - Female History Hx Last Menstrual Period: 3 weeks ago Are you now?: No - Past Surgical History Past Surgical History: Yes Neuro Surgical History: No Pertinent History Cardiac History: No Pertinent History Respiratory Surgery: No Pertinent History GI Surgical History: No Pertinent History Genitourinary Surgical Hx: No Pertinent History Musculskeletal Surgical Hx: No Pertinent History Female Surgical History: Section, Other Other Surgical History: Lasik - gaudencio eyes, surgery to remove plantars warts on feet, skin tag removed. breast lift Significant Family History: no pertinent family hx - Social History Smoking Status: Former smoker How long have you smoked: 15 Exposure to second hand smoke: No Alcohol: None Drug Use: none - Social Determinants of Health Will the patient participate in the screening: Declined to provide Do you worry about a steady place to live?: No In the past 12 months,have you had to go without utilities?: No Have you or anyone in your house had to go without enough: No Transportation Issues: No Has anyone in your support network made you feel unsafe?: No - Physical Exam Vital Signs: Vital Signs - 24 hr Temp Pulse Resp BP BP Pulse Ox 08/26/24 17:29 97.7 F 73 16 97/59 100 08/26/24 17:00 103/68 08/26/24 16:51 100 08/26/24 16:30 83 14 119/73 100 08/26/24 16:00 108 H 20 99/67 08/26/24 15:30 88 16 94/56 98 08/26/24 15:21 85 27 H 99/67 100 08/26/24 15:20 88 18 100 08/26/24 15:10 85 22 100 08/26/24 15:00 93 H 15 100 08/26/24 14:50 94 H 14 100 08/26/24 14:40 91 H 18 100 08/26/24 14:30 95 H 22 100 08/26/24 14:20 96 H 08/26/24 14:10 101 H 19 99 08/26/24 14:03 97 H 17 100 08/26/24 13:34 90 18 103/81 99 08/26/24 13:33 105/83 99 08/26/24 13:32 98.5 F 104 H 18 120/71 115/78 99 08/26/24 13:30 115/78 100 General Appearance: no apparent distress, alert Neurologic Exam: alert, oriented x 3, cooperative, normal mood/affect, nml cerebellar function, nml station & gait, sensation nml, No motor deficits Eye Exam: PERRL/EOMI, eyes nml inspection Ears, Nose, Throat Exam: normal ENT inspection, TMs normal, pharynx normal, moist mucous membranes Neck Exam: normal inspection, non-tender, supple, full range of motion Respiratory Exam: normal breath sounds, lungs clear, No respiratory distress Cardiovascular Exam: regular rate/rhythm, normal heart sounds, normal peripheral pulses Gastrointestinal/Abdomen Exam: soft, normal bowel sounds, No tenderness, No mass Back Exam: normal inspection, normal range of motion, No CVA tenderness, No vertebral tenderness Extremity Exam: normal inspection, normal range of motion, pelvis stable Skin Exam: normal color, warm, dry, No rash Lymphatic Exam: No adenopathy Results - Labs Lab/Micro Results: Lab Results-Last 24 Hours 08/26/24 08/26/24 08/26/24 Range/Units 13:45 13:45 13:45 WBC 9.4 (3.98-10.04) x10^3/uL RBC 4.40 (3.93-5.22) x10^6/uL Hgb 14.0 (11.2-15.7) g/dL Hct 42.3 (34.1-44.9) % MCV 96.1 H (79.4-94.8) fL MCH 31.8 (25.6-32.2) pg MCHC 33.1 (32.2-35.5) g/dL RDW 11.8 (11.7-14.4) % Plt Count 191 (182-369) x10^3/uL MPV 11.2 (9.4-12.3) fL Gran % 74.7 H (34.0-71.1) % Immature Gran % (Auto) 0.3 (0.001-0.429) % Nucleat RBC Rel Count 0.0 (0.00-0.2) % Eos # (Auto) 0.16 (0.04-0.36) x10^3/uL Immature Gran # (Auto) 0.03 (0.001-0.031) x10^3u/L Absolute Lymphs (auto) 1.83 (1.18-3.74) x10^3/uL Absolute Monos (auto) 0.33 (0.24-0.86) x10^3/uL Absolute Nucleated RBC 0.00 (0.00-0.012) x10^3u/L Lymphocytes % 19.5 (19.3-51.7) % Monocytes % 3.5 L (4.7-12.5) % Eosinophils % 1.7 (0.7-5.8) % Basophils % 0.3 (0.1-1.2) % Absolute Granulocytes 6.99 H (1.56-6.13) x10^3/uL Basophils # 0.03 (0.01-0.08) x10^3/uL Sodium 140 (135-145) mmol/L Potassium 3.8 (3.5-5.1) mmol/L Chloride 107 (98-107) mmol/L Carbon Dioxide 26 (22-30) mmol/L Anion Gap 11.0 (5-15) MEQ/L BUN 11 (7-17) mg/dL Creatinine 0.59 (0.52-1.04) mg/dL Estimated GFR 113.9 ML/MIN Glucose 126 H (74-106) mg/dL Lactic Acid (0.4-2.0) Calcium 9.0 (8.4-10.2) mg/dL Magnesium 2.2 (1.6-2.3) mg/dL Total Bilirubin 0.50 (0.2-1.3) mg/dL AST 25 (14-36) U/L ALT 19 (0-35) U/L Alkaline Phosphatase 47 (38-126) U/L Troponin I < 0.012 (0.000-0.033) ng/mL Serum Total Protein 7.2 (6.3-8.2) g/dL Albumin 4.2 (3.5-5.0) g/dL Serum HCG, Qual (NEGATIVE) Ethyl Alcohol < 10 (0-10) mg/dL 08/26/24 08/26/24 Range/Units 13:45 13:46 WBC (3.98-10.04) x10^3/uL RBC (3.93-5.22) x10^6/uL Hgb (11.2-15.7) g/dL Hct (34.1-44.9) % MCV (79.4-94.8) fL MCH (25.6-32.2) pg MCHC (32.2-35.5) g/dL RDW (11.7-14.4) % Plt Count (182-369) x10^3/uL MPV (9.4-12.3) fL Gran % (34.0-71.1) % Immature Gran % (Auto) (0.001-0.429) % Nucleat RBC Rel Count (0.00-0.2) % Eos # (Auto) (0.04-0.36) x10^3/uL Immature Gran # (Auto) (0.001-0.031) x10^3u/L Absolute Lymphs (auto) (1.18-3.74) x10^3/uL Absolute Monos (auto) (0.24-0.86) x10^3/uL Absolute Nucleated RBC (0.00-0.012) x10^3u/L Lymphocytes % (19.3-51.7) % Monocytes % (4.7-12.5) % Eosinophils % (0.7-5.8) % Basophils % (0.1-1.2) % Absolute Granulocytes (1.56-6.13) x10^3/uL Basophils # (0.01-0.08) x10^3/uL Sodium (135-145) mmol/L Potassium (3.5-5.1) mmol/L Chloride (98-107) mmol/L Carbon Dioxide (22-30) mmol/L Anion Gap (5-15) MEQ/L BUN (7-17) mg/dL Creatinine (0.52-1.04) mg/dL Estimated GFR ML/MIN Glucose (74-106) mg/dL Lactic Acid 1.2 (0.4-2.0) Calcium (8.4-10.2) mg/dL Magnesium (1.6-2.3) mg/dL Total Bilirubin (0.2-1.3) mg/dL AST (14-36) U/L ALT (0-35) U/L Alkaline Phosphatase (38-126) U/L Troponin I (0.000-0.033) ng/mL Serum Total Protein (6.3-8.2) g/dL Albumin (3.5-5.0) g/dL Serum HCG, Qual NEGATIVE (NEGATIVE) Ethyl Alcohol (0-10) mg/dL - Radiology Impressions Radiology Exams & Impressions: Radiology Procedures Category Date Time Status HEAD WITHOUT CONTRAST [CT] Stat Exams 08/26/24 13:43 Completed Assessment/Plan (1) Orthostatic hypotension Current Visit: Yes Status: Acute Assessment & Plan: - 1L NS fluid bolus gave in ER. - IVF - recheck orthostats in AM - PT eval - Tele - Consider POTS dx Code(s): I95.1 - ORTHOSTATIC HYPOTENSION (2) Weakness Current Visit: Yes Status: Acute Assessment & Plan: - UA pending - CBC, CMP reviewed Code(s): R53.1 - WEAKNESS (3) Chronic vertigo Current Visit: No Status: Acute Assessment & Plan: - Continue meclizine VTE: SCD's Next of KIN: Spouse D/C plan: tomorrow Code status: Full Code(s): R42 - DIZZINESS AND GIDDINESS Telemedicine Encounter - Telemedicine Encounter Telemedicine Encounter: "The entirety of this encounter was performed via Telemedicine" This visit was performed using real-time audio and video connection between my location and thepatients locationwith the assistance of a surrogateat the patients location. Written or verbal consent was obtained from the patient/guardian to perform this visit usingsynchronoustelemedicine technology. Any patient questions regarding the telemedicine interaction were answered.
[2024-08-26] MEDS ORDERED: ATARAX 25 MG PO PRN (18:00)
[2024-08-26] MEDS ORDERED: PHENERGAN 25 MG PO PRN (18:00)
[2024-08-26] MEDS ORDERED: CLARITIN 10 MG PO PRN (18:00)
[2024-08-26] MEDS ORDERED: MELOXICAM PO ONE (19:20)
[2024-08-26] MEDS: NON-FORMULARY ITEM (Meloxicam [Mobic] 15 MG Tablet) PO SCH (19:21)
[2024-08-26] MEDS: Ativan 1 MG PO SCH (20:56)
[2024-08-26 21:15] LABS: Appearance Clear (Clear); Bacteria Moderate /HPF (None Seen); Bilirubin Negative (Negative); Blood Negative (Negative); Epithelial Cells Rare /HPF (None Seen); Glucose, Urine Negative (Negative); Hyaline Casts NONE SEEN /LPF (0-2); Ketones Negative (Negative); Leukocyte Esterase Negative (Negative); Nitrite Negative (Negative); Protein,Urine Dip Negative (Negative); Urobilinogen 0.2 mg/dL (0.2)
[2024-08-26 21:26] LABS: Amphetamine,Urine NEGATIVE (NEGATIVE); Barbiturate,Urine NEGATIVE (NEGATIVE); Benzodiazepine,Urine NEGATIVE (NEGATIVE); Cocaine,Urine NEGATIVE (NEGATIVE); Methadone,Urine NEGATIVE (NEGATIVE); Opiate,Urine NEGATIVE (NEGATIVE); PCP,Urine NEGATIVE (NEGATIVE); THC,Urine NEGATIVE (NEGATIVE)
[2024-08-27 04:33] LABS: Hematocrit 37.6 % (34.1-44.9); Hemoglobin 12.3 g/dL (11.2-15.7); Mean Cell Volume 96.7 fL (79.4-94.8); Mean Corpuscular Hemoglobin 31.6 pg (25.6-32.2); Mean Corpuscular Hgb Concent. 32.7 g/dL (32.2-35.5); Platelet Count 160 x10^3/uL (182-369); Red Blood Count 3.89 x10^6/uL (3.93-5.22)
[2024-08-27 04:43] LABS: ANION GAP 7.3 MEQ/L (5-15); Calcium 8.5 mg/dL (8.4-10.2); Creatinine 1 0.52 mg/dL (0.52-1.04); EST GLOMERULAR FILTRATION RATE 117.4 ML/MIN; Potassium 3.7 mmol/L (3.5-5.1)
[2024-08-27] MEDS: Sodium Chloride 0.9% 1000 ML 1,000 ML IV SCH (05:07)
[2024-08-27] MEDS ORDERED: Ativan 1 MG PO PRN (06:53)
--- NOTE | 2024-08-27 09:10 | PCM.DS ---
Discharge Summary Date of Admission: 08/26/24 17:18 Date of Discharge: 08/27/24 Admitting Physician: JUDITH AVELAR MD Primary Care Provider: BEAU NUNN Allergies Allergies No Known Drug Allergies Allergy (Verified 08/26/24 17:30) Hospital Summary - Hospital Course Hospital Course: 08/26/24 is a 44 year old female with PMHX of long-COVID, migraines, hypoglycemia, and anxiety. She came to the ER today C/O hypotension. She tried drinking water, water with electrolytes, and water with salt added and was unable to get her BP up. Patient states she has been having intermittent hypotension for the past month but she feels "more off" this am. She reports she has an appointment at the [facility] November 25, 2024 for possible autonomic disorder evaluation. She reports sleeping in the floor at home and taking anivert at night to sleep as this helps. 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 She reports she is a nurse and was not very happy about what the provider had to say. CT head in ER did not show any concerning findings. She denies CP, SOB, abd. pain, N/V/D. 08/27/24 Pt resting in bed. She continues to not feel well and feels like she has the flu. Fu/COVID/RSV pending. BP with orthostats non-concerning. HR did increase with standing 30 points. She does meet criteria for POTS. Discussed to increase sodium intake and f/u OP with PCP and cardiology. Will have pt work with PT today and evaluate for OP needs. BP stable and IVF stopped. She denies CP, SOB, abd. pain, N/V/D. - Vitals & Intake/Output Vital Signs: Vital Signs Temperature 98.2 F 08/27/24 07:38 Pulse Rate 82 08/27/24 07:38 Respiratory Rate 16 08/27/24 07:38 Blood Pressure 107/57 08/27/24 07:38 O2 Sat by Pulse Oximetry 96 08/27/24 07:38 Intake & Output: Intake & Output 08/24/24 08/25/24 08/26/24 08/27/24 11:59 11:59 11:59 11:59 Intake Total 1420 Output Total 300 Balance 1120 Weight 73.936 kg - Lab Result Diagrams: 08/27/24 04:10 08/27/24 04:10 Lab Results-Last 24 Hrs: Lab Results-Last 24 Hours 08/26/24 08/26/24 08/26/24 Range/Units 13:45 13:45 13:45 WBC 9.4 (3.98-10.04) x10^3/uL RBC 4.40 (3.93-5.22) x10^6/uL Hgb 14.0 (11.2-15.7) g/dL Hct 42.3 (34.1-44.9) % MCV 96.1 H (79.4-94.8) fL MCH 31.8 (25.6-32.2) pg MCHC 33.1 (32.2-35.5) g/dL RDW 11.8 (11.7-14.4) % Plt Count 191 (182-369) x10^3/uL MPV 11.2 (9.4-12.3) fL Gran % 74.7 H (34.0-71.1) % Immature Gran % (Auto) 0.3 (0.001-0.429) % Nucleat RBC Rel Count 0.0 (0.00-0.2) % Eos # (Auto) 0.16 (0.04-0.36) x10^3/uL Immature Gran # (Auto) 0.03 (0.001-0.031) x10^3u/L Absolute Lymphs (auto) 1.83 (1.18-3.74) x10^3/uL Absolute Monos (auto) 0.33 (0.24-0.86) x10^3/uL Absolute Nucleated RBC 0.00 (0.00-0.012) x10^3u/L Lymphocytes % 19.5 (19.3-51.7) % Monocytes % 3.5 L (4.7-12.5) % Eosinophils % 1.7 (0.7-5.8) % Basophils % 0.3 (0.1-1.2) % Absolute Granulocytes 6.99 H (1.56-6.13) x10^3/uL Basophils # 0.03 (0.01-0.08) x10^3/uL Sodium 140 (135-145) mmol/L Potassium 3.8 (3.5-5.1) mmol/L Chloride 107 (98-107) mmol/L Carbon Dioxide 26 (22-30) mmol/L Anion Gap 11.0 (5-15) MEQ/L BUN 11 (7-17) mg/dL Creatinine 0.59 (0.52-1.04) mg/dL Estimated GFR 113.9 ML/MIN Glucose 126 H (74-106) mg/dL Lactic Acid (0.4-2.0) Calcium 9.0 (8.4-10.2) mg/dL Magnesium 2.2 (1.6-2.3) mg/dL Total Bilirubin 0.50 (0.2-1.3) mg/dL AST 25 (14-36) U/L ALT 19 (0-35) U/L Alkaline Phosphatase 47 (38-126) U/L Troponin I < 0.012 (0.000-0.033) ng/mL Serum Total Protein 7.2 (6.3-8.2) g/dL Albumin 4.2 (3.5-5.0) g/dL Serum HCG, Qual (NEGATIVE) Urine Color (Yellow) Urine Appearance (Clear) Urine pH (4.6-8.0) Ur Specific [place] (1.005-1.030) Urine Protein (Negative) Urine Glucose (UA) (Negative) mg/dL Urine Ketones (Negative) Urine Blood (Negative) Urine Nitrite (Negative) Urine Bilirubin (Negative) Urine Urobilinogen (0.2) mg/dL Ur Leukocyte Esterase (Negative) U Hyaline Cast (Auto) (0-2) /LPF Urine Microscopic RBC (0-5) /HPF Urine Microscopic WBC (0-5) /HPF Ur Epithelial Cells (None Seen) /HPF Urine Bacteria (None Seen) /HPF Urine Culture Reflexed (NO) Urine Opiates Level (NEGATIVE) Ur Methadone (NEGATIVE) Urine Barbiturates (NEGATIVE) Ur Phencyclidine (PCP) (NEGATIVE) Urine Amphetamine (NEGATIVE) U Benzodiazepine Level (NEGATIVE) Urine Cocaine (NEGATIVE) Urine Marijuana (THC) (NEGATIVE) Ethyl Alcohol < 10 (0-10) mg/dL 08/26/24 08/26/24 08/26/24 Range/Units 13:45 13:46 19:25 WBC (3.98-10.04) x10^3/uL RBC (3.93-5.22) x10^6/uL Hgb (11.2-15.7) g/dL Hct (34.1-44.9) % MCV (79.4-94.8) fL MCH (25.6-32.2) pg MCHC (32.2-35.5) g/dL RDW (11.7-14.4) % Plt Count (182-369) x10^3/uL MPV (9.4-12.3) fL Gran % (34.0-71.1) % Immature Gran % (Auto) (0.001-0.429) % Nucleat RBC Rel Count (0.00-0.2) % Eos # (Auto) (0.04-0.36) x10^3/uL Immature Gran # (Auto) (0.001-0.031) x10^3u/L Absolute Lymphs (auto) (1.18-3.74) x10^3/uL Absolute Monos (auto) (0.24-0.86) x10^3/uL Absolute Nucleated RBC (0.00-0.012) x10^3u/L Lymphocytes % (19.3-51.7) % Monocytes % (4.7-12.5) % Eosinophils % (0.7-5.8) % Basophils % (0.1-1.2) % Absolute Granulocytes (1.56-6.13) x10^3/uL Basophils # (0.01-0.08) x10^3/uL Sodium (135-145) mmol/L Potassium (3.5-5.1) mmol/L Chloride (98-107) mmol/L Carbon Dioxide (22-30) mmol/L Anion Gap (5-15) MEQ/L BUN (7-17) mg/dL Creatinine (0.52-1.04) mg/dL Estimated GFR ML/MIN Glucose (74-106) mg/dL Lactic Acid 1.2 (0.4-2.0) Calcium (8.4-10.2) mg/dL Magnesium (1.6-2.3) mg/dL Total Bilirubin (0.2-1.3) mg/dL AST (14-36) U/L ALT (0-35) U/L Alkaline Phosphatase (38-126) U/L Troponin I < 0.012 (0.000-0.033) ng/mL Serum Total Protein (6.3-8.2) g/dL Albumin (3.5-5.0) g/dL Serum HCG, Qual NEGATIVE (NEGATIVE) Urine Color (Yellow) Urine Appearance (Clear) Urine pH (4.6-8.0) Ur Specific [place] (1.005-1.030) Urine Protein (Negative) Urine Glucose (UA) (Negative) mg/dL Urine Ketones (Negative) Urine Blood (Negative) Urine Nitrite (Negative) Urine Bilirubin (Negative) Urine Urobilinogen (0.2) mg/dL Ur Leukocyte Esterase (Negative) U Hyaline Cast (Auto) (0-2) /LPF Urine Microscopic RBC (0-5) /HPF Urine Microscopic WBC (0-5) /HPF Ur Epithelial Cells (None Seen) /HPF Urine Bacteria (None Seen) /HPF Urine Culture Reflexed (NO) Urine Opiates Level (NEGATIVE) Ur Methadone (NEGATIVE) Urine Barbiturates (NEGATIVE) Ur Phencyclidine (PCP) (NEGATIVE) Urine Amphetamine (NEGATIVE) U Benzodiazepine Level (NEGATIVE) Urine Cocaine (NEGATIVE) Urine Marijuana (THC) (NEGATIVE) Ethyl Alcohol (0-10) mg/dL 08/26/24 08/26/24 08/27/24 Range/Units 21:07 21:07 04:10 WBC 6.0 (3.98-10.04) x10^3/uL RBC 3.89 L (3.93-5.22) x10^6/uL Hgb 12.3 (11.2-15.7) g/dL Hct 37.6 (34.1-44.9) % MCV 96.7 H (79.4-94.8) fL MCH 31.6 (25.6-32.2) pg MCHC 32.7 (32.2-35.5) g/dL RDW 12.0 (11.7-14.4) % Plt Count 160 L (182-369) x10^3/uL MPV 11.0 (9.4-12.3) fL Gran % (34.0-71.1) % Immature Gran % (Auto) (0.001-0.429) % Nucleat RBC Rel Count (0.00-0.2) % Eos # (Auto) (0.04-0.36) x10^3/uL Immature Gran # (Auto) (0.001-0.031) x10^3u/L Absolute Lymphs (auto) (1.18-3.74) x10^3/uL Absolute Monos (auto) (0.24-0.86) x10^3/uL Absolute Nucleated RBC (0.00-0.012) x10^3u/L Lymphocytes % (19.3-51.7) % Monocytes % (4.7-12.5) % Eosinophils % (0.7-5.8) % Basophils % (0.1-1.2) % Absolute Granulocytes (1.56-6.13) x10^3/uL Basophils # (0.01-0.08) x10^3/uL Sodium (135-145) mmol/L Potassium (3.5-5.1) mmol/L Chloride (98-107) mmol/L Carbon Dioxide (22-30) mmol/L Anion Gap (5-15) MEQ/L BUN (7-17) mg/dL Creatinine (0.52-1.04) mg/dL Estimated GFR ML/MIN Glucose (74-106) mg/dL Lactic Acid (0.4-2.0) Calcium (8.4-10.2) mg/dL Magnesium (1.6-2.3) mg/dL Total Bilirubin (0.2-1.3) mg/dL AST (14-36) U/L ALT (0-35) U/L Alkaline Phosphatase (38-126) U/L Troponin I (0.000-0.033) ng/mL Serum Total Protein (6.3-8.2) g/dL Albumin (3.5-5.0) g/dL Serum HCG, Qual (NEGATIVE) Urine Color Yellow (Yellow) Urine Appearance Clear (Clear) Urine pH 6.0 (4.6-8.0) Ur Specific [place] 1.020 (1.005-1.030) Urine Protein Negative (Negative) Urine Glucose (UA) Negative (Negative) mg/dL Urine Ketones Negative (Negative) Urine Blood Negative (Negative) Urine Nitrite Negative (Negative) Urine Bilirubin Negative (Negative) Urine Urobilinogen 0.2 (0.2) mg/dL Ur Leukocyte Esterase Negative (Negative) U Hyaline Cast (Auto) NONE SEEN (0-2) /LPF Urine Microscopic RBC 3-5 (0-5) /HPF Urine Microscopic WBC 3-5 (0-5) /HPF Ur Epithelial Cells Rare (None Seen) /HPF Urine Bacteria Moderate A (None Seen) /HPF Urine Culture Reflexed YES (NO) Urine Opiates Level NEGATIVE (NEGATIVE) Ur Methadone NEGATIVE (NEGATIVE) Urine Barbiturates NEGATIVE (NEGATIVE) Ur Phencyclidine (PCP) NEGATIVE (NEGATIVE) Urine Amphetamine NEGATIVE (NEGATIVE) U Benzodiazepine Level NEGATIVE (NEGATIVE) Urine Cocaine NEGATIVE (NEGATIVE) Urine Marijuana (THC) NEGATIVE (NEGATIVE) Ethyl Alcohol (0-10) mg/dL 08/27/24 Range/Units 04:10 WBC (3.98-10.04) x10^3/uL RBC (3.93-5.22) x10^6/uL Hgb (11.2-15.7) g/dL Hct (34.1-44.9) % MCV (79.4-94.8) fL MCH (25.6-32.2) pg MCHC (32.2-35.5) g/dL RDW (11.7-14.4) % Plt Count (182-369) x10^3/uL MPV (9.4-12.3) fL Gran % (34.0-71.1) % Immature Gran % (Auto) (0.001-0.429) % Nucleat RBC Rel Count (0.00-0.2) % Eos # (Auto) (0.04-0.36) x10^3/uL Immature Gran # (Auto) (0.001-0.031) x10^3u/L Absolute Lymphs (auto) (1.18-3.74) x10^3/uL Absolute Monos (auto) (0.24-0.86) x10^3/uL Absolute Nucleated RBC (0.00-0.012) x10^3u/L Lymphocytes % (19.3-51.7) % Monocytes % (4.7-12.5) % Eosinophils % (0.7-5.8) % Basophils % (0.1-1.2) % Absolute Granulocytes (1.56-6.13) x10^3/uL Basophils # (0.01-0.08) x10^3/uL Sodium 138 (135-145) mmol/L Potassium 3.7 (3.5-5.1) mmol/L Chloride 109 H (98-107) mmol/L Carbon Dioxide 25 (22-30) mmol/L Anion Gap 7.3 (5-15) MEQ/L BUN 9 (7-17) mg/dL Creatinine 0.52 (0.52-1.04) mg/dL Estimated GFR 117.4 ML/MIN Glucose 97 (74-106) mg/dL Lactic Acid (0.4-2.0) Calcium 8.5 (8.4-10.2) mg/dL Magnesium (1.6-2.3) mg/dL Total Bilirubin (0.2-1.3) mg/dL AST (14-36) U/L ALT (0-35) U/L Alkaline Phosphatase (38-126) U/L Troponin I (0.000-0.033) ng/mL Serum Total Protein (6.3-8.2) g/dL Albumin (3.5-5.0) g/dL Serum HCG, Qual (NEGATIVE) Urine Color (Yellow) Urine Appearance (Clear) Urine pH (4.6-8.0) Ur Specific [place] (1.005-1.030) Urine Protein (Negative) Urine Glucose (UA) (Negative) mg/dL Urine Ketones (Negative) Urine Blood (Negative) Urine Nitrite (Negative) Urine Bilirubin (Negative) Urine Urobilinogen (0.2) mg/dL Ur Leukocyte Esterase (Negative) U Hyaline Cast (Auto) (0-2) /LPF Urine Microscopic RBC (0-5) /HPF Urine Microscopic WBC (0-5) /HPF Ur Epithelial Cells (None Seen) /HPF Urine Bacteria (None Seen) /HPF Urine Culture Reflexed (NO) Urine Opiates Level (NEGATIVE) Ur Methadone (NEGATIVE) Urine Barbiturates (NEGATIVE) Ur Phencyclidine (PCP) (NEGATIVE) Urine Amphetamine (NEGATIVE) U Benzodiazepine Level (NEGATIVE) Urine Cocaine (NEGATIVE) Urine Marijuana (THC) (NEGATIVE) Ethyl Alcohol (0-10) mg/dL - Radiology Exams Ordered Rad Exams-Entire Visit: Radiology Procedures Category Date Time Status HEAD WITHOUT CONTRAST [CT] Stat Exams 08/26/24 13:43 Completed - Procedures and Test Procedures and Tests throughout Hospitalization: Therapy Orders & Screens 08/26/24 17:35 PT Eval & Treat ( Order) ONCE Reason for Eval:: orthostatic hypotension Diagnosis: dehydration Discharge Exam General Appearance: no apparent distress, alert Neurologic Exam: alert, oriented x 3, cooperative, normal mood/affect, nml cerebellar function, sensation nml, No motor deficits Eye Exam: PERRL, EOMI, eyes nml inspection Ears, Nose, Throat Exam: normal ENT inspection, pharynx normal, moist mucous membranes Neck Exam: normal inspection, non-tender, supple, full range of motion Respiratory Exam: normal breath sounds, lungs clear, No respiratory distress Cardiovascular Exam: regular rate/rhythm, normal heart sounds Gastrointestinal/Abdomen Exam: soft, No tenderness, No mass Pelvic Exam: deferred Rectal Exam: deferred Back Exam: normal inspection, normal range of motion, No CVA tenderness, No vertebral tenderness Extremity Exam: normal inspection, normal range of motion Skin Exam: normal color, warm, dry Final Diagnosis/Problem List - Final Discharge Diagnosis/Problem (1) Orthostatic hypotension Current Visit: Yes Status: Resolved Code(s): I95.1 - ORTHOSTATIC HYPOTENSION (2) Weakness Current Visit: Yes Status: Acute Code(s): R53.1 - WEAKNESS (3) Chronic vertigo Current Visit: No Status: Acute Assessment & Plan: (1) Orthostatic hypotension Current Visit: Yes Status: Acute Assessment & Plan: - 1L NS fluid bolus gave in ER. - IVF - recheck orthostats in AM - PT eval - Tele - Consider POTS dx 08/29 - resolved - stop IVF - CBC, CMP reviewed - Seb Manzo Code(s): I95.1 - ORTHOSTATIC HYPOTENSION (2) Weakness Current Visit: Yes Status: Acute Assessment & Plan: - UA pending - CBC, CMP reviewed 08/27/24 - Flu/COVID/RSV- negative - PT eval Code(s): R53.1 - WEAKNESS (3) Chronic vertigo Current Visit: No Status: Acute Assessment & Plan: - Continue meclizine 08/27 - Pt would benefit from vestibular therapy OP per PT- this was ordered Code(s): R42 - DIZZINESS AND GIDDINESS Code(s): R42 - DIZZINESS AND GIDDINESS (4) POTS (postural orthostatic tachycardia syndrome) Current Visit: Yes Status: Acute Assessment & Plan: - HR increased with standing to 130 - 30 points - encourage to increase sodium intake with episodes. - F/u OP at [facility] with autonomic lab- would benefit from tilt table rimma ting Code(s): G90.A - POSTURAL ORTHOSTATIC TACHYCARDIA SYNDROME [POTS] - Discharge Discharge Date: 08/27/24 Disposition: Home, Self-Care Condition: Stable Prescriptions: Continue Loratadine 10 mg [Claritin 10 mg] 1 ea PO DAILY PRN PRN Reason: Allergies Meloxicam [Mobic] 15 mg PO DAILY Meclizine HCl 25 mg [Antivert 25 mg] 1 tab PO QID PRN PRN PRN Reason: Dizziness Hydroxyzine HCl 25 mg [Atarax 25 mg] 1 tab PO QID PRN PRN PRN Reason: Dizziness Lorazepam [Ativan] 1 mg PO BID PRN #20 tablet Promethazine HCl 25 mg [Phenergan 25 mg] 25 mg PO QID PRN PRN Reason: Nausea Ergocalciferol (Vitamin D2) [Vitamin D2] 1,250 mcg PO 2XW Outpatient Orders: Physical Therapy Eval & Treat Time Frame: 1 Week, Facility: [facility], Location: PHYSICAL THERAPY Instructions: Tachycardia, Vertigo (a type of dizziness) Follow up with: BEAU NUNN NP [Primary Care Provider] -
[2024-08-27] MEDS: MELOXICAM PO SCH (09:49)
[2024-08-27] MEDS: ANTIVERT 25 MG PO PRN (09:52)
[2024-08-27 10:30] LABS: INFLUENZA A NEGATIVE (NEGATIVE); INFLUENZA B NEGATIVE (NEGATIVE); RESPIRATORY SYNCTIAL VIRUS NEGATIVE (NEGATIVE); SARS-CoV-2 Xpert Express NEGATIVE (NEGATIVE)
[2024-08-27 11:21] VITALS: BP 91/59; PULSE 79; RESP 18; TEMP 97.7; O2SAT 99
[2024-08-29] MEDS ORDERED: VITAMIN D2 PO SCH (10:00)
== END 2024-08-27 12:23 | disposition home or self-care (01) ==
LOC: ED 13:20 → MED SURG 17:18
PROVIDERS: ADMIT Internal Medicine; ATTEND Internal Medicine
DX: I95.1 Orthostatic hypotension (principal); R53.1 Weakness; R42 Dizziness and giddiness; G90.A Postural orthostatic tachycardia syndrome [POTS]; Z79.899 Other long term (current) drug therapy; F41.9 Anxiety disorder, unspecified; Z86.16 Personal history of COVID-19
CPT/HCPCS: 0241U; 36415; 70450; 80048; 80053; 80307; 81001; 82077; 83605; 83735; 84484; 84703; 85025; 85027; 87086; 93005; 93041; 97162; 99284; A9270-GY